=== PATIENT | male | born 1955 | race Caucasian/White ===

== ENCOUNTER 2023-11-25 13:39 | Emergency (ER) | payer OTHER ==
--- OUTSIDE RECORDS SUMMARY | 2023-11-25 13:44 | XMS REPORT | Continuity of Care Document ---
Author Name Unknown Address [address] [facility] [address] [id number] [facility] Address [address] 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 Role Phone NANETTE EPSTEIN Attending Clinician Unavailable Lab, Richard Ospinab I Attending Clinician Unavailab Nanette Pena PA-C Attending Clinician [phone] Doctor Unassigned, Zachary Attending Clinician U navailable Payers Payer Name Policy Type Policy Number Effective Date Expirati on Date Source [employer] CHOICE POS II [id number] 2018 00:00:00 Allergies, Adverse Reactions, Alerts Allergy Name Allergy Type Status Severity Reaction(s) Onset Date Inactive Date Treating Clinician Comments Source NO KNOWN ALLERGIE S Drug Class Active [facility] Social History Social Habit Start Date Stop Date Quantity Comments Source Sex Assigned At [facility] Exposure to SARS-CoV-2 (event) Yes [facility] Smoking Status Start Date Stop Date Source Unknown if ever smoked [facility] Encounters Start Date/Time End Date/Time Encounter Type Admission Type Attending Clinicians Care Facility Care Department Encounter ID Source 2020-02-14 16:20:00 2020-02-14 16:20:00 Outpatient NANETTE REMY [facility] [id number] [facility] 2020-02-14 14:04:22 2020-02-14 14:24:22 Laboratory Only Lab, Adc Fam Pob Nanette Cassidy [facility] [address] [id number] [facility] 2020-02-14 00:00:00 2020-02-14 00:00:00 Letter (Out) Doctor Unassigned, Zachary [facility] [id number] [facility]
--- NOTE | 2023-11-25 15:15 | RAD REPORT ---
EXAM: XR RIGHT HAND HISTORY: Pain. injury COMPARISON: None TECHNIQUE: Multiple projections of the right hand submitted. FINDINGS: Mild soft tissue swelling is seen along the dorsum of the hand.. Mild to moderate degenerat eric changes first carpometacarpal joint. No acute fracture or dislocation IMPRESSION: No acute findings seen.
--- NOTE | 2023-11-25 15:18 | ER ---
Nurse's Notes [facility] Name: Esteban Phan Age: 68 yrs Sex: Male : 1955 Arrival Date: 11/25/2023 Time: 13:39 Bed 13 Private MD: Diagnosis: Crushing injury of hand Presentation: 11/24 14:06 Chief complaint: Patient states: "I got my hand caught on a door on the shed". Pt c/o aa5 pain and swelling to top of right hand. Coronavirus screen: At this time, the client does not indicate any symptoms associated with coronavirus-19. Ebola Screen: Patient denies travel to an Ebola-affected area in the 21 days before illness onset. Initial Sepsis Screen: Does the patient meet any 2 criteria? No. Patient's initial sepsis screen is negative. Does the patient have a suspected source of infection? No. Patient's initial sepsis screen is negative. Risk Assessment: Do you want to hurt yourself or someone else? Patient reports no desire to harm self or others. Onset of symptoms was November 2023. 14:06 Method Of Arrival: Ambulatory aa5 14:06 Acuity: KEVIN 4 aa5 Historical: - Allergies: 14:06 No Known Allergies; aa5 - PMHx: 14:06 Hypertensive disorder; Hypercholesterolemia; aa5 - Immunization history:: Adult Immunizations unknown. - Infectious Disease History:: Denies. - Social history:: Smoking status: Patient denies any tobacco usage or history of. Screenin:32 [facility] ED Fall Risk Assessment (Adult) History of falling in the last 3 months, kc6 including since admission No falls in past 3 months (0 pts) Confusion or Disorientation No (0 pts) Intoxicated or Sedated No (0 pts) Impaired Gait No (0 pts) Mobility Assist Device Used No (0 pt) Altered Elimination No (0 pt) Score/Fall Risk Level 0 - 2 = Low Risk Oriented to surroundings. Abuse screen: Denies threats or abuse. Denies injuries from another. Nutritional screening: No deficits noted. Tuberculosis screening: No symptoms or risk factors identified. Assessment: 14:32 General: Appears in no apparent distress. comfortable, well groomed, well developed, kc6 Behavior is calm, cooperative, appropriate for age. Pain: Complains of pain in right hand. Neuro: Level of Consciousness is awake, alert, obeys commands, Oriented to person, place, time, situation, Appropriate for age. Cardiovascular: Capillary refill < 3 seconds. Respiratory: Airway is patent Trachea midline Respiratory effort is even, unlabored, Respiratory pattern is regular, symmetrical. GI: No signs and/or symptoms were reported involving the gastrointestinal system. : No signs and/or symptoms were reported regarding the genitourinary system. EENT: No signs and/or symptoms were reported regarding the EENT system. Derm: Skin is intact, is healthy with good turgor, Skin is pink, warm \\T\\ dry. Musculoskeletal: Swelling present in right hand. Vital Signs: 14:06 BP 142 / 90; Pulse 67; Resp 18 S; Temp 98(TE); Pulse Ox 95% on R/A; Weight 90.72 kg aa5 (R); Height 5 ft. 9 in. (R); 14:06 Body Mass Index 29.53 (90.72 kg, 175.26 cm) aa5 ED Course: 13:40 Patient arrived in ED. ra3 13:41 Brad Bradford MD is Attending Physician. ec2 14:06 Arm band placed on. aa5 14:07 Triage completed. aa5 14:23 Patient placed in an exam room, on a stretcher. ll1 14:31 Nisha Sky, RN is Primary Nurse. kc6 14:32 Patient has correct armband on for positive identification. Bed in low position. Call kc6 light in reach. Side rails up X 1. Pulse ox on. NIBP on. Door closed. Noise minimized. Lights dimmed. Pillow given. 14:32 Patient maintains SpO2 saturation greater than 95% on room air. kc6 15:09 Hand Right 3 View XRAY In Process Unspecified. EDMS 15:37 No provider procedures requiring assistance completed. Patient did not have IV access kc6 during this emergency room visit. 15:37 Ihsan wrap to right hand. kc6 Administered Medications: No medications were administered Medication: 15:38 VIS not applicable for this client. kc6 Outcome: 15:17 Discharge ordered by . ec2 15:38 Discharged to home ambulatory, kc6 15:38 Condition: good 15:38 Discharge instructions given to patient, Instructed on discharge instructions, follow up and referral plans. medication usage, Demonstrated understanding of instructions, follow-up care, medications, Prescriptions given X 1, 15:38 Patient left the ED. kc6 Signatures: Dispatcher [employer] Christy Meraz RN RN aa5 Elton Hernandez RN RN ll1 Nisha Sky RN RN kc6 Brad Bradford MD MD ec2 Karis Deal ra3
--- NOTE | 2023-11-25 15:18 | EDPHYS ---
Physician Documentation [facility] Name: Esteban Phan Age: 68 yrs Sex: Male : 1955 Arrival Date: 11/25/2023 Time: 13:39 Bed 13 Private MD: ED Physician Brad Bradford HPI: 11/24 14:11 This 68 yrs old Male presents to ER via Ambulatory with complaints of Hand ec2 Injury - right. 14:11 Patient arrives today for evaluation of a right hand injury. States that he injured his ec2 hand under a door yesterday. Patient reports otherwise no other injuries. States that injury occurred yesterday, states that swelling progressed today which were prompted evaluation.. Historical: - Allergies: 14:06 No Known Allergies; aa5 - PMHx: 14:06 Hypertensive disorder; Hypercholesterolemia; aa5 - Immunization history:: Adult Immunizations unknown. - Infectious Disease History:: Denies. - Social history:: Smoking status: Patient denies any tobacco usage or history of. ROS: 14:11 Constitutional: as per hpi ec2 Exam: 14:11 Constitutional: GEN: NAD Head: atraumatic Eyes: EOMI Ears: External ears are ec2 normal. CV: regular rate LUNGS: no respiratory distress ABD: non-distended SKIN: no evidence of rashes MSK: Right hand with soft tissue swelling noted, no deformities present. Intact capillary refill. Vital Signs: 14:06 BP 142 / 90; Pulse 67; Resp 18 S; Temp 98(TE); Pulse Ox 95% on R/A; Weight 90.72 kg aa5 (R); Height 5 ft. 9 in. (R); 14:06 Body Mass Index 29.53 (90.72 kg, 175.26 cm) aa5 MDM: 14:11 Data reviewed: vital signs. ED course: Patient arrives today for a right hand injury. ec2 Examination remarkable for hand findings as above. Will obtain radiograph. Differential includes contusion, fracture. . 15:17 ED course: Hand x-ray independently reviewed and interpreted by me, shows no bony ec2 fracture. Will discharge home. Turn precautions given. 15:17 Patient medically screened. ec2 11/24 13:41 Order name: Hand Right 3 View XRAY; Complete Time: 15:16 ec2 11/24 15:22 Order name: Ihsan Wrap; Complete Time: 15:32 ec2 Administered Medications: No medications were administered Disposition Summary: 11/25/23 15:17 Discharge Ordered Notes: Location: Home ec2 Condition: Stable ec2 Diagnosis - Crushing injury of hand ec2 Followup: ec2 - With: Private Physician - When: - Reason: Re-evaluation by your physician Discharge Instructions: - Discharge Summary Sheet ec2 - Crush Injury of the Hand, [id number] ec2 Forms: - Medication Reconciliation Form ec2 - Antibiotic Education ec2 - Prescription Opioid Use ec2 - Patient Portal Instructions ec2 - Leadership Thank You Letter ec2 Prescriptions: - Prednisone 20 mg Oral Tablet - take 1 tablet ORAL route once daily for 5 days; 5 tablet; Refills: 0, Product ec2 Selection Permitted Signatures: Dispatcher [employer] Christy Meraz RN RN aa5 Brad Bradford MD MD ec2
[2023-11-25 18:13] VITALS: BP 142/90; TEMP 98; O2SAT 95
== END 2023-11-25 15:38 | disposition home or self-care (01) ==
LOC: ER 13:39
DX: S67.21XA Crushing injury of right hand, initial encounter (principal)
CPT/HCPCS: 99283